=== PATIENT | female | born 1995 | race Caucasian/White ===

== ENCOUNTER 2017-12-09 23:17 | Emergency (ER) | payer OTHER ==
[2017-12-09] MEDS ORDERED: Acetaminophen 500 MG TAB ONE (23:59)
[2017-12-10 00:18] LABS: Bilirubin Negative (Negative); Blood, Urine Negative (Negative); Clarity CLEAR (Clear); Glucose, Urine (Dipstick) Negative (Negative); Leukocyte Small (Negative); Nitrite Negative (Negative); Protein, Urine (Dipstick) Negative (Neg-Trace); Specific Gravity, Urine 1.029 (1.002-1.036); Urobilinogen 0.2 mg/dL (0.2-1.0)
[2017-12-10 00:21] LABS: Bacteria/HPF Rare-Few HPF (None Seen); Hyaline Casts/LPF 0-3 HYALINE CAST LPF (0-3 Hyaline); Pathc Cast-AUWi Flag 0.58 (0-2.49); Squamous Epithelial 0-3 HPF (0-3)
[2017-12-10 00:27] LABS: RBC/HPF None Seen HPF (0-3)
== END 2017-12-10 01:10 | disposition home or self-care (01) ==
LOC: ERS 23:17
DX: O9A.211 Injury, poisoning and certain other consequences of external causes complicating pregnancy, first trimester (principal); M54.5 Low back pain; V43.52XA Car driver injured in collision with other type car in traffic accident, initial encounter; Z3A.10 10 weeks gestation of pregnancy
CPT/HCPCS: 81003; 81015; 99283

== ENCOUNTER 2018-06-24 03:48 | Inpatient (IN) | payer OTHER ==
[2018-06-24 04:18] VITALS: BMI 31.9
[2018-06-24] MEDS ORDERED: Lidocaine 1% (PF) 30 ML VIAL SC PRN (04:29)
[2018-06-24] MEDS ORDERED: Acetaminophen 500 MG TAB PO PRN (04:29)
[2018-06-24] MEDS ORDERED: NS / Oxytocin 40 units/1000ml 1,000 ML IV PRN (04:29)
[2018-06-24] MEDS ORDERED: Docusate 100 MG CAP PO PRN (04:29)
[2018-06-24] MEDS ORDERED: Butorphanol Tartrate 1 MG/ML VIAL SLOW IVP PRN (04:29)
[2018-06-24] MEDS ORDERED: Ibuprofen 800 MG TAB PO PRN (04:29)
[2018-06-24] MEDS ORDERED: Promethazine HCl 25 MG/ML VIAL IM PRN ×2 (04:29→06:50)
[2018-06-24] MEDS ORDERED: Ondansetron PF 4 MG/2 ML Vial IVP PRN ×2 (04:29→06:50)
--- NOTE | 2018-06-24 04:41 | PDOC.EVN ---
Event Note - Event Note Event Note: 06/24/2018 at 4:35 AM 23 year old at 38.5 wks with NADEGE of 07/03/2018 presents with SROM since 3: 10 this AM. Patient reports clear fluid. She endorses contractions q1-3 minutes. Endorses good movement. Denies vaginal bleeding. Patient reports no complications in this . We are in process of trying to obtain GBS status. Surgical history includes wisdom teeth removal. BP 138/94 Pulse 106 PROM - At 3:10 AM on 06/24 - Admit to L&D for expectant management - Epidural for pain control - Category I strip - /-2 at 4:30 TIUP - See plan as above Dispo: Admit to L&D for expectant management Sabrina Valadez, DO PGY-2
[2018-06-24] MEDS: Lactated Ringer's 1,000 ML IV SCH ×3 (05:00→09:30)
[2018-06-24] MEDS ORDERED: Fentanyl 4 mcg/Bup 0.1% Cadd 100 ML ONE ×2 (05:13→13:33)
[2018-06-24] MEDS ORDERED: Lidocaine 1.5%/Epinephrine 1:200,000 5 ML AMPUL IJ ONE ×2 (05:15→10:25)
[2018-06-24 05:18] LABS: Hemoglobin 11.8 g/dL (12.0-16.0); Mean Corpuscular HGB CONC 33.4 g/dL (32.0-36.0); Mean Corpuscular Hemoglobin 27.8 pg (27.0-31.0); Mean Corpuscular Volume 83.4 fL (78.0-98.0); Mean Platelet Volume 7.6 fL (7.4-10.4); Platelet Count 396 thou/uL (130-400); RBC Distribution Width 12.9 % (11.5-14.5); Red Blood Cell (RBC) Count 4.24 mill/uL (4.20-5.40); White Blood Cell (WBC) Count 10.8 thou/uL (4.8-10.8)
[2018-06-24 05:56] LABS: Syphilis Antibody Nonreactive (Nonreactive); Syphilis Antibody Index 0.03 S/CO (<1.00 Non-Reactive)
[2018-06-24 05:57] LABS: HBSAg Index 0.21 S/CO (0-0.99); Hep B Surf Ag Non-Reactive S/CO (NonReactive)
--- NOTE | 2018-06-24 06:32 | PDOC.EVN ---
Event Note - Event Note Event Note: OBGYN Faculty: Patient of Jane steele Called into LDR 9 for decels..I arrived within 2 minutes of call. I arrived to find patient on all fours in knee vhest, FHR in 80s...FSE placed per Dr Valadez (resident ship's electronic warfare officer). No evidence cord prolapse. JUDE was placed at 0608 prior to fdecels but BP did not drop. Terb X1 SQ administered at 0622 (about 1 minute after I arrived)...FHTs up to 110s to low 120s. IUPC to be placed (now in process) by Dr Valadez for better uterine pressure readings. IVF resus in use. Exam: /0/cephalic We will notify Domingo once eval complete. DX: FHR decels to 80 for about 4 minutes, recovery in process s/p terb; active phase of labor
[2018-06-24] MEDS ORDERED: Eucerin (Mineral Oil/Petrolatum,White) 30 gm Jar TOP PRN (06:50)
[2018-06-24] MEDS ORDERED: Lactated Ringer's 500 ML IV PRN (06:50)
[2018-06-24] MEDS ORDERED: Acetaminophen 325 MG TAB PO PRN (06:50)
[2018-06-24] MEDS ORDERED: ePHEDrine/0.9% NaCl/PF SYRINGE 50 mg/10 ml SLOW IVP PRN (06:50)
[2018-06-24] MEDS ORDERED: Naloxone HCl 0.4 mg/ml Vial IVP PRN ×2 (06:50)
[2018-06-24] MEDS ORDERED: diphenhydrAMINE 50 MG/ML VIAL IVP PRN (06:50)
[2018-06-24] MEDS ORDERED: Communication Order-Pharmacy FS SCH (07:00)
[2018-06-24] MEDS ORDERED: Fentanyl 4 mcg/Bupivacaine 0.1% Cassette 100 ML EPIDURAL SCH (07:00)
[2018-06-24 08:32] LABS: HIV (1/2) Antibody/Antigen Non-Reactive (NonReactive); HIV 1/2 INDEX 0.15 S/CO (<1.00)
[2018-06-24] MEDS ORDERED: NS w/ Oxytocin 10 units 500 ML ONE (10:13)
--- NOTE | 2018-06-24 10:22 | PDOC.LDPN ---
Labor & Delivery Progress Note - Subjective Subjective: comfortable (with regional pain management) - Objective Vital signs reviewed and normal: yes General: NAD, resting Uterine fundus: non tender Dilation: 7 Effacement: 90% Station: 0 FHT: category 1 Burien contractions every: q5min - Assessment (1) 39 weeks gestation of Code(s): Z3A.39 - 39 WEEKS GESTATION OF Current Visit: Yes Status : Acute (2) Primigravida Code(s): Z34.00 - ENCNTR FOR SUPRVSN OF NORMAL FIRST , UNSP TRIMESTER Current Visit: Yes Status: Acute (3) heart rate decelerations affecting management of mother Code(s): O36.8390 - MATERN CARE FOR ABNLT FETL HRT RATE OR RHYM, UNSP TRI, UNSP Current Visit: Yes Status: Acute Plan: pitocin for augmentation -: anticipate . Observer for further heart rate decelerations. Discussed possibility of delivery should infant have another prolonged deceleration.
[2018-06-24] MEDS ORDERED: NS w/ Oxytocin 10 units 500 ML IV SCH (10:30)
[2018-06-24] MEDS ORDERED: Terbutaline Sulfate 1 MG/ML VIAL ONE (11:11)
[2018-06-24] MEDS ORDERED: Sodium Chloride 0.9% (PF) 10 ML VIAL ONE (11:11)
[2018-06-24] MEDS ORDERED: Bupivacaine 0.25% HCL 30 ML VIAL ONE (11:11)
[2018-06-24] MEDS ORDERED: Bupivacaine HCl 0.25%/Epi 0.0005/PF 10 ML VIAL FS ONE (11:11)
--- NOTE | 2018-06-24 18:35 | PDOC.OPDEL ---
OB Operative/Delivery Note Delivery Dr/Surgeon: David Assist: Light Pre-Delivery Diagnosis: active labor, ruptured membrane Procedure/Post Delivery Dx: operative vaginal delivery (VAVD by Dr. Hernandez.) Weeks gestation: 38 (and 5 ) Anesthesia: epidural - Findings A - 1 min: 8 - 5 min: 9 - Additional Findings/Plan Placenta delivered: spontaneous Repaired Obstetrical Laceration: 2nd degree Estimated blood loss: 400mL Compilations/Other Findings: Prolonged second stage and maternal exhaustion. matt team - at [facility]. Post delivery plan: routine recovery
[2018-06-25] MEDS ORDERED: Benzocaine/Menthol 20-0.5% 60 ML CAN TOP PRN (00:04)
[2018-06-25] MEDS ORDERED: Bisacodyl 10 MG SUPP PR PRN (00:04)
[2018-06-25] MEDS ORDERED: diphenhydrAMINE 25 MG CAP PO PRN (00:04)
[2018-06-25] MEDS ORDERED: NS / Oxytocin 40 units/1000ml 1,000 ML IV SCH (00:04)
[2018-06-25] MEDS ORDERED: HYDROcodone/Acetaminophen 5/325 mg Tablet PO PRN ×2 (00:04)
[2018-06-25] MEDS ORDERED: Milk Of Magnesia 30 ML UDCUP PO PRN (00:04)
[2018-06-25] MEDS ORDERED: Ondansetron PF 4 MG/2 ML Vial IVP PRN (00:04)
[2018-06-25] MEDS ORDERED: Methylergonovine 0.2 MG/ML VIAL IM PRN (00:04)
[2018-06-25] MEDS ORDERED: Lanolin Ointment 7 GM TUBE TOP PRN (00:04)
[2018-06-25 05:52] LABS: Mean Corpuscular HGB CONC 32.8 g/dL (32.0-36.0); Mean Corpuscular Hemoglobin 27.6 pg (27.0-31.0); Mean Corpuscular Volume 84.2 fL (78.0-98.0); Mean Platelet Volume 7.4 fL (7.4-10.4); Platelet Count 260 thou/uL (130-400); RBC Distribution Width 12.8 % (11.5-14.5); Red Blood Cell (RBC) Count 3.26 mill/uL (4.20-5.40); White Blood Cell (WBC) Count 12.2 thou/uL (4.8-10.8)
[2018-06-25] MEDS: Ibuprofen 800 MG TAB PO SCH ×3 (06:02→21:24)
[2018-06-25] MEDS ORDERED: Adacel (T-DAP) 0.5 ML SYRINGE IM ONE (09:00)
[2018-06-25] MEDS: Docusate Calcium (SURFAK) 240 MG CAP PO SCH ×2 (09:29→21:24)
[2018-06-25] MEDS: Prenatal Vitamin 1 TAB PO SCH (09:29)
[2018-06-25] MEDS: Ferrous Sulfate 325 MG TAB PO SCH ×2 (09:31→18:13)
--- NOTE | 2018-06-25 19:21 | PDOC.PP ---
Post Progress Note Post Day #: 1. Subjective: Patient is doine well. had some difficultly urinating last night and had to have another catheter. she is able to pee again toda, but it soriano really bad again. She is just using the spray which is helping. PO intake tolerated: yes Flatus: yes Ambulation: yes Vital Signs (12 hours) Temp Pulse Resp BP 06/25/18 17:35 98.1 F 75 18 144/67 H 06/25/18 11:05 98.2 F 107 H 17 134/77 Weight Weight 186 lb - Physical Examination General: NAD Cardiovascular: no m/r/g, RRR Respiratory: clear to auscultation bilaterally, non-labored breathing Abdominal: + bowel sounds, lochia (minimal) Fundus firm & at: U-1 Extremities: negative homans (B) Skin: no rash Perineum: edema, laceration intact. Neurological: no gross focal deficits Psychiatric: A&Ox3, normal affect Result Diagrams: 06/25/18 05:32 Additional Labs: Post Labs Blood Type O POSITIVE 06/24/18 05:00 Hep Bs Antigen Non-Reactive S/CO (NonReactive) 06/24/18 05:00 (1) 39 weeks gestation of Code(s): Z3A.39 - 39 WEEKS GESTATION OF Status: Acute (2) Primigravida Code(s): Z34.00 - ENCNTR FOR SUPRVSN OF NORMAL FIRST , UNSP TRIMESTER Status: Acute (3) heart rate decelerations affecting management of mother Code(s): O36.8390 - MATERN CARE FOR ABNLT FETL HRT RATE OR RHYM, UNSP TRI, UNSP Status: Acute (4) Vacuum extraction, delivered, current hospitalization Code(s): O66.5 - ATTEMPTED APPLICATION OF VACUUM EXTRACTOR AND FORCEPS Status : Acute (5) Anemia Code(s): D64.9 - ANEMIA, UNSPECIFIED Status: Acute (6) Second degree laceration of perineum, delivered, current hospitalization Code(s): O70.1 - SECOND DEGREE PERINEAL LACERATION DURING DELIVERY Status: Acute - Assessment/Plan A: G1 now P1 s/p VAVD for prolonged second stage and maternal exhaustion. NML PPD #1 exam. P: Discharge home tomorrow. restart PNV and OTC iron at home for anemia. 6 week follow up at [facility].
[2018-06-26] MEDS: Ibuprofen 800 MG TAB PO SCH (05:55)
--- NOTE | 2018-06-26 08:12 | DIS ---
DATE OF ADMISSION: 06/24/2018 DATE OF DISCHARGE: 06/26/2018 ADMITTING DIAGNOSES: 1. Intrauterine at 38 and 5. 2. Labor. DISCHARGE DIAGNOSES: 1. Intrauterine at 38 and 5. 2. Labor. PROCEDURE: Vacuum-assisted vaginal delivery. HOSPITAL COURSE: The patient is a 23-year-old female, who presented to Labor and Delivery in labor at 38 weeks and 5 days and was admitted for expectant management. Her labor course was complicated by requiring operative delivery and delivered by vacuum-assisted vaginal delivery. For complete details, please refer to the delivery note. Her course has been uncomplicated. The patient is now day 2. She is tolerating p.o., voiding on her own, having decreased lochia, and good pain control. PHYSICAL EXAMINATION: VITAL SIGNS: Her most recent vital signs; blood pressure 119/69, temperature 98.1, pulse of 83, respiratory rate of 20. GENERAL: She appears to be in no acute distress. She is alert, oriented, cooperative, and pleasant to interact with. HEENT: Head is normocephalic and atraumatic. LUNGS: Clear to auscultation bilaterally. ABDOMEN: Fundus is firm at the umbilicus. EXTREMITIES: Nontender and nonedematous. Postdelivery hemoglobin 9.0, hematocrit 27.4, and platelets of 260,000. The patient is being discharged to home with ibuprofen and tramadol. She has instructions to follow up with her primary OB, Ms. Inessa Lane in 6 weeks or sooner if she experiences increasing pain or bleeding or fever. The patient is being discharged to home. Job ID: [id number]
[2018-06-26 09:56] VITALS: BP 119/77; TEMP 98
[2018-06-26] MEDS: Ferrous Sulfate 325 MG TAB PO SCH (10:23)
[2018-06-26] MEDS: Prenatal Vitamin 1 TAB PO SCH (10:23)
[2018-06-26] MEDS: Docusate Calcium (SURFAK) 240 MG CAP PO SCH (10:24)
== END 2018-06-26 12:29 | disposition home or self-care (01) | DRG 807 ==
LOC: L&D/OP 03:48 → L&D 04:32 → 3SW 21:15
PROVIDERS: ADMIT Obstetrics & Gynecology; ATTEND Obstetrics & Gynecology
PROC: 10D07Z6 Extraction of Products of Conception, Vacuum, Via Natural or Artificial Opening (ICD-10-PCS; principal; 2018-06-24)
PROC: 0KQM0ZZ Repair Perineum Muscle, Open Approach (ICD-10-PCS; 2018-06-24)
PROC: 10H07YZ Insertion of Other Device into Products of Conception, Via Natural or Artificial Opening (ICD-10-PCS; 2018-06-24)
DX: O63.1 Prolonged second stage (of labor) (principal); Z37.0 Single live birth; Z3A.38 38 weeks gestation of pregnancy; O70.1 Second degree perineal laceration during delivery; O75.81 Maternal exhaustion complicating labor and delivery; O76 Abnormality in fetal heart rate and rhythm complicating labor and delivery; O66.5 Attempted application of vacuum extractor and forceps; O90.81 Anemia of the puerperium; D64.9 Anemia, unspecified
CPT/HCPCS: 36415; 51702; 85027; 86780; 86850; 86900; 86901; 87340; 87389; 99285; J2001; J2405; J3105; J3490; S0020

== ENCOUNTER 2019-11-10 15:56 | Emergency (ER) | payer OTHER ==
[2019-11-10 16:35] LABS: #Basophils 0.1 thou/uL (0.0-0.2); #Eosinphils 0.1 thou/uL (0.0-0.7); #Lymphocytes 2.2 thou/uL (1.20-3.40); #Monocytes 0.5 thou/uL (0.11-0.59); #Neutrophils 6.7 thou/uL (1.40-6.50); %Eosinophils 0.8 % (0.0-10.0); %Monocytes 5.5 % (0.0-10.0); %Neutrophils 69.8 % (42.0-75.0); Mean Corpuscular HGB CONC 32.9 g/dL (32.0-36.0); Mean Corpuscular Hemoglobin 27.8 pg (27.0-31.0); Mean Corpuscular Volume 84.5 fL (78.0-98.0); Mean Platelet Volume 7.7 fL (7.4-10.4); Platelet Count 283 thou/uL (130-400); RBC Distribution Width 12.3 % (11.5-14.5); White Blood Cell (WBC) Count 9.6 thou/uL (4.8-10.8)
--- NOTE | 2019-11-10 17:20 | ULT ---
Obstetric sonogram first trimester HISTORY: Early . Pelvic pain. FINDINGS: Urinary bladder is decompressed. Gestational sac within the endometrial cavity contains a yolk sac remnant and pole. Measurement s correlate with 11 weeks 5 days gestational age giving an estimated date of delivery of 05/26/2020. Heart motion at 160 beats from minute. Anterior to the gestational sac is an irregular shaped heterogeneous echogenic collection measuring 5 .2 cm length by 2.3 cm depth. Minimal free fluid at the right adnexa. Neither ovary well visualized. IMPRESSION : Single early intrauterine gestation. Estimated gestational age 11 weeks 5 days. Anterior subchorionic hematoma. 5.2 cm x 2.3 cm.
[2019-11-10 17:56] LABS: Bacteria/HPF None Seen HPF (None Seen); Bilirubin Negative (Negative); Blood, Urine 1+ (Negative); Clarity Clear (Clear); Glucose, Urine (Dipstick) Normal (Negative); Leukocyte Negative Leu/uL (Negative); Nitrite Negative (Negative); Protein, Urine (Dipstick) Negative (Neg-Trace); Squamous Epithelial 0-3 HPF (0-3); Urobilinogen Normal mg/dL (Less than 2); WBC/HPF 0-3 HPF (0-3)
[2019-11-11 23:11] LABS: Chlamydia by PCR Not Detected (NotDetected); GC by PCR Not Detected (NotDetected)
== END 2019-11-10 18:18 | disposition home or self-care (01) ==
LOC: ERS 15:56
DX: O20.8 Other hemorrhage in early pregnancy (principal); Z3A.11 11 weeks gestation of pregnancy
CPT/HCPCS: 36415; 76856; 81003; 81015; 85025; 86900; 86901; 87480; 87491; 87510; 87591; 87660; 93976

== ENCOUNTER 2020-04-24 08:12 | Outpatient (CLI) | payer OTHER ==
--- NOTE | 2020-04-27 11:59 | EKG ---
Test Reason : POUNDING PULSE Blood Pressure : / mmHG Vent. Rate : 083 BPM Atrial Rate : 083 BPM P-R Int : 136 ms QRS Dur : 076 ms QT Int : 348 ms P-R-T Axes : 038 066 012 degrees QTc Int : 408 ms Normal sinus rhythm Normal ECG No previous ECGs available Confirmed by REANNA CARTAGENA (2) on 04/27/2020 11:59:30 AM Referred By: VAZQUEZ ABERNATHY Confirmed By:REANNA CARTAGENA
== END 2020-04-24 08:13 | disposition home or self-care (01) ==
LOC: EKG 08:12 → ULT 08:13
PROVIDERS: ATTEND Advanced Practice Midwife
DX: R00.8 Other abnormalities of heart beat (principal); I08.1 Rheumatic disorders of both mitral and tricuspid valves
CPT/HCPCS: 93005; 93010; 93306

== ENCOUNTER 2020-05-18 19:10 | Inpatient (IN) | payer OTHER ==
[~2020-05-18 19:10] MED LIST: Bupivacaine HCl 0.5%/Epinephrine 1:200,000/PF 30 ml Vial ONE; Lidocaine 2% MPF 10 ML AMP (For Epidural Use) ONE
[2020-05-18 19:37] VITALS: BMI 32.5
[2020-05-18 20:39] LABS: Hemoglobin 10.3 g/dL (12.0-16.0); Mean Corpuscular HGB CONC 32.1 g/dL (32.0-36.0); Mean Corpuscular Hemoglobin 23.4 pg (27.0-31.0); Mean Platelet Volume 8.4 fL (7.4-10.4); Platelet Count 249 thou/uL (130-400); RBC Distribution Width 14.2 % (11.5-14.5); White Blood Cell (WBC) Count 10.3 thou/uL (4.8-10.8)
[2020-05-18] MEDS ORDERED: Butorphanol Tartrate 1 MG/ML VIAL SLOW IVP PRN (20:53)
[2020-05-18] MEDS ORDERED: Methylergonovine 0.2 MG/ML VIAL IM PRN (20:53)
[2020-05-18] MEDS ORDERED: hydrALAZINE 20 MG/ML VIAL SLOW IVP PRN (20:53)
[2020-05-18] MEDS ORDERED: Promethazine HCl 25 MG/ML VIAL IM PRN ×2 (20:53→21:32)
[2020-05-18] MEDS ORDERED: HYDROcodone/Acetaminophen 5/325 mg Tablet PO PRN ×2 (20:53)
[2020-05-18] MEDS ORDERED: Lidocaine 1% (PF) 30 ML VIAL SC PRN (20:53)
[2020-05-18] MEDS ORDERED: Ondansetron PF 4 MG/2 ML Vial IVP PRN ×2 (20:53→21:32)
[2020-05-18] MEDS ORDERED: Misoprostol 200 MCG TAB PR PRN (20:53)
[2020-05-18] MEDS ORDERED: NS / Oxytocin 40 units/1000ml 1,000 ML IV PRN (20:53)
[2020-05-18] MEDS ORDERED: Ibuprofen 800 MG TAB PO PRN (20:53)
--- NOTE | 2020-05-18 20:59 | PDOC.LDHP ---
Labor and Delivery H&P Chief complaint: contractions HPI: Roverto arrived to hospital complaining of contractions Current gestational age (weeks): 38 Due date: 05/29/20 Grav: 2 Para: 1 OB History Details: VAVD with Dr. Hernandez. OP presentation. Current complications: none Abnormal US findings: No Current medications: pre-peter vitamins Previous surgical history: other (mouth surgery) Allergies/Adverse Reactions: Allergies Allergy/AdvReac Type Severity Reaction Status Date / Time No Known Allergies Allergy Verified 05/18/20 19:35 Social history: none - Physical Exam Vital signs reviewed and normal: yes General: breathing through contractions Lungs: nonlabored breathing Abdomen: gravid Extremeties: no edema FHT: category 1 - Vaginal Exam cm dilated: 4 Effacement: 90% Station: -1 - OB Labs Blood type: O RH: positive Antibody Screen: negative HIV: negative RPR: negative HEPSAg: negative 1 hour GCT: negative GBS: negative Urine drug screen: negative Rubella: immune - Assessment L&D Assessment: term patient in labor - Plan Plan: admit to L&D, informed consent obtained, anesthesia consult for pain management -: routine care anticipate Pitocin for augmentation if indicated.
[2020-05-18] MEDS ORDERED: DISCONTINUE ALL PREVIOUS NARCOTICS FS SCH (21:00)
[2020-05-18] MEDS ORDERED: Lactated Ringer's 1,000 ML IV SCH (21:00)
[2020-05-18] MEDS ORDERED: Bupivacaine 0.5% 20 ML, fentaNYL Citrate/PF 400 MCG in Sodium Chloride 0.9% 72 ML EPIDURAL SCH (21:00)
[2020-05-18] MEDS ORDERED: NS w/ Oxytocin 10 units 500 ML IV SCH (21:00)
[2020-05-18 21:18] LABS: Syphilis Antibody Nonreactive (Nonreactive); Syphilis Antibody Index 0.03 S/CO (<1.00 Non-Reactive)
[2020-05-18] MEDS ORDERED: Acetaminophen 325 MG TAB PO PRN (21:32)
[2020-05-18] MEDS ORDERED: Lactated Ringer's 500 ML IV PRN (21:32)
[2020-05-18] MEDS ORDERED: Naloxone HCl 0.4 mg/ml Vial IVP PRN ×2 (21:32)
[2020-05-18] MEDS ORDERED: diphenhydrAMINE 50 MG/ML VIAL IVP PRN (21:32)
[2020-05-18] MEDS ORDERED: ePHEDrine 50 MG/ML VIAL SLOW IVP PRN (21:32)
[2020-05-18] MEDS ORDERED: Communication Order-Pharmacy FS SCH (21:45)
[2020-05-18] MEDS ORDERED: Fentanyl 4 mcg/Bupivacaine 0.1% Cassette 100 ML EPIDURAL SCH (21:45)
[2020-05-18 22:06] LABS: HBSAg Index 0.17 S/CO (0-0.99); Hep B Surf Ag Non-Reactive S/CO (NonReactive)
[2020-05-19 04:16] LABS: Actual Bicarbonate (HCO3a) 22.9 mEq/L (22-28); Base Excess (BEa) -4.3 mEq/L (-2.0 to +3.0)
--- NOTE | 2020-05-19 04:22 | PDOC.OPDEL ---
OB Operative/Delivery Note Delivery Dr/Surgeon: Light Pre-Delivery Diagnosis: active labor Procedure/Post Delivery Dx: spontaneous vaginal delivery Anesthesia: epidural - Findings A Sex: male - 1 min: 6 - 5 min: 9 - Additional Findings/Plan Estimated blood loss: 150 Compilations/Other Findings: Tight nuchal, cut and clamped on perineum. Post delivery plan: routine recovery
[2020-05-19] MEDS ORDERED: NS / Oxytocin 40 units/1000ml 1,000 ML IV SCH (04:57)
[2020-05-19] MEDS ORDERED: Bisacodyl 10 MG SUPP PR PRN (04:57)
[2020-05-19] MEDS ORDERED: hydrALAZINE 20 MG/ML VIAL SLOW IVP PRN (04:57)
[2020-05-19] MEDS ORDERED: Milk Of Magnesia 30 ML UDCUP PO PRN (04:57)
[2020-05-19] MEDS ORDERED: HYDROcodone/Acetaminophen 5/325 mg Tablet PO PRN ×2 (04:57)
[2020-05-19] MEDS ORDERED: Misoprostol 200 MCG TAB VAG PRN (04:57)
[2020-05-19] MEDS ORDERED: Benzocaine-Menthol 82.5 ML CAN TOP PRN (04:57)
[2020-05-19 05:34] LABS: SARS-CoV-2 MS2 Positive; SARS-CoV-2 N Gene Negative; SARS-CoV-2 S Gene Negative; SARS-CoV-2 by NAA Not Detected (NotDetected); SARS-CoV-2 orf1ab Negative
[2020-05-19] MEDS ORDERED: Adacel (T-DAP) 0.5 ML SYRINGE IM ONE (09:00)
[2020-05-19] MEDS: Ibuprofen 800 MG TAB PO SCH ×2 (10:28→16:44)
[2020-05-19] MEDS: Prenatal Vitamin 1 TAB PO SCH (10:28)
[2020-05-19] MEDS: Docusate Calcium (SURFAK) 240 MG CAP PO SCH ×2 (10:28→22:07)
[2020-05-19] MEDS: Ferrous Sulfate 325 MG TAB PO SCH ×2 (10:29→20:44)
[2020-05-20] MEDS: Ibuprofen 800 MG TAB PO SCH ×3 (00:52→09:24)
[2020-05-20 09:23] VITALS: BP 118/79; TEMP 98
[2020-05-20] MEDS: Ferrous Sulfate 325 MG TAB PO SCH (09:24)
[2020-05-20] MEDS: Prenatal Vitamin 1 TAB PO SCH (09:24)
[2020-05-20] MEDS: Docusate Calcium (SURFAK) 240 MG CAP PO SCH (09:24)
== END 2020-05-20 16:40 | disposition home or self-care (01) | DRG 807 ==
LOC: L&D/OP 19:10 → L&D 22:19 → 3SW 05-19 07:49
PROVIDERS: ADMIT Obstetrics & Gynecology; ATTEND Obstetrics & Gynecology
PROC: 10E0XZZ Delivery of Products of Conception, External Approach (ICD-10-PCS; principal; 2020-05-19)
PROC: 0HQ9XZZ Repair Perineum Skin, External Approach (ICD-10-PCS; 2020-05-19)
DX: O69.1XX0 Labor and delivery complicated by cord around neck, with compression, not applicable or unspecified (principal); Z37.0 Single live birth; Z20.828 Contact with and (suspected) exposure to other viral communicable diseases; O70.0 First degree perineal laceration during delivery; Z3A.38 38 weeks gestation of pregnancy
CPT/HCPCS: 36415; 51702; 82805; 85027; 86780; 86850; 86900; 86901; 87340; 87635; 99285; J2001; J3010; J3490; U0003

== ENCOUNTER 2020-08-01 10:20 | Outpatient (CLI) | payer OTHER | END 2020-08-01 10:21 | disposition home or self-care (01) | LOC: BICRAD 10:20 | PROVIDERS: ATTEND Advanced Practice Midwife | DX: M53.3 Sacrococcygeal disorders, not elsewhere classified (principal) | CPT/HCPCS: 72220 ==

== ENCOUNTER 2020-08-08 06:48 | Emergency (ER) | payer OTHER ==
[2020-08-08] MEDS ORDERED: Morphine 4 MG/ML VIAL ONE (07:53)
[2020-08-08 07:54] LABS: #Basophils 0.1 thou/uL (0.0-0.2); #Eosinphils 0.1 thou/uL (0.0-0.7); #Monocytes 0.4 thou/uL (0.11-0.59); #Neutrophils 3.2 thou/uL (1.40-6.50); %Basophils 1.2 % (0.0-1.0); %Eosinophils 1.9 % (0.0-10.0); %Lymphocytes 35.4 % (21.0-51.0); %Monocytes 6.3 % (0.0-10.0); %Neutrophils 55.2 % (42.0-75.0); Hemoglobin 11.9 g/dL (12.0-16.0); Mean Corpuscular Hemoglobin 24.5 pg (27.0-31.0); Mean Corpuscular Volume 76.7 fL (78.0-98.0); Mean Platelet Volume 7.9 fL (7.4-10.4); Platelet Count 304 thou/uL (130-400); RBC Distribution Width 15.3 % (11.5-14.5); Red Blood Cell (RBC) Count 4.86 mill/uL (4.20-5.40); White Blood Cell (WBC) Count 5.7 thou/uL (4.8-10.8)
[2020-08-08] MEDS ORDERED: Ondansetron PF 4 MG/2 ML Vial ONE (07:57)
[2020-08-08 08:00] LABS: Bacteria/HPF None Seen HPF (None Seen); Bilirubin Negative (Negative); Blood, Urine 2+ (Negative); Clarity Clear (Clear); Glucose, Urine (Dipstick) Normal (Negative); Ketone, Urine Negative (Negative); Leukocyte Negative Leu/uL (Negative); Nitrite Negative (Negative); Protein, Urine (Dipstick) Negative (Neg-Trace); Specific Gravity, Urine 1.026 (1.002-1.036); Squamous Epithelial None Seen HPF (0-3); Urobilinogen Normal mg/dL (Less than 2); WBC/HPF 0-3 HPF (0-3); pH, Urine 5.5 (5.0-9.0)
[2020-08-08 08:02] LABS: Pregnancy Test - Urine (BHCG) Negative (Negative); Pregu Control Background? CLEAR/WHITE (CLR/WHITE); Pregu Control Bar Appear? YES (CONTROL BAR); Specific Gravity 1.026 (1.002-1.036)
[2020-08-08 08:14] LABS: ALT (SGPT) 13 U/L (8-55); AST (SGOT) 19 U/L (5-34); Albumin 4.2 g/dL (3.5-5.0); Alkaline Phosphatase 73 U/L (40-110); Anion Gap 13 mmol/L (10-20); BUN (Urea Nitrogen) 19 mg/dL (7.0-18.7); Bilirubin, Total 0.2 mg/dL (0.2-1.2); Calc. Creatinine Clearance 0 mL/min (70-130); Calcium 8.8 mg/dL (7.8-10.44); Carbon Dioxide 23 mmol/L (22-29); Chloride 108 mmol/L (98-107); Globulin 3.3 g/dL (2.4-3.5); Glucose 92 mg/dL (70-105); Potassium 4.4 mmol/L (3.5-5.1); Protein, Total 7.5 g/dL (6.0-8.3); Sodium 140 mmol/L (136-145)
--- NOTE | 2020-08-08 09:21 | CT ---
ABDOMEN CT WITH CONTRAST PELVIC CT WITH CONTRAST: Date: 08/08/2020 HISTORY: Right lower quadrant pain. Heavy menstrual bleeding. FINDINGS: ABDOMEN CT: Clear lung bases. Normal heart size. Normal caliber aorta. Patent portal vein. Unremarkable gallbladder. Appropriate enhancement of solid organs. Appropriate enhancement of right kidney without evidence of obstructive uropathy. Left kidney is not appreciated. Correlate for postsurgical change versus congenital absence of the le ft kidney. No gastrohepatic, retrocrural, or periportal lymphadenopathy. Scattered mildly enlarged mesenteric lymph nodes. Correlate for mesenteric lymphadenitis. Representat darlin enlarged lymph node measures 1.2 x 0.7 cm. No mesenteric free air or free fluid. Limited evaluation of the alimentary canal by lack of oral contrast. No evidence of a bowel obstruction. Diverticulosis, without evidence of diverticulitis. Normal caliber appendix. PELVIC CT: Intrauterine device is identified. No abnormality in adnexal structures. No pelvic mass, lymphadenopathy, free air, or free fluid. Presacral fat is preserved. Decompressed urinary bladder. No lytic or blastic lesions in the osseous structures. IMPRESSION: Normal caliber appendix. POS: [facility]
[2020-08-08] MEDS ORDERED: Iopamidol-370 76% 500 ML 1 ML ONE (10:17)
--- NOTE | 2020-08-08 10:19 | ULT ---
TRANSABDOMINAL AND TRANSVAGINAL PELVIC ULTRASOUND WITH HUANG SCALE AND COLOR FLOW AND SPECTRAL DOPPLER IMAGING: Date: 08/08/2020 HISTORY: Right lower quadrant pain and heavy vaginal bleeding. Recently placed IUD. FINDINGS: The uterus measures 8.1 x 4.3 x 6.3 cm without focal mass. IUD is visualized within the endometrial c anal. Endometrium measures 5.0 mm in thickness. The right ovary measures 2.5 x 1.3 x 1.8 cm and demonstrates flow. No adnexal mass is seen on either side. No free fluid is identified. The left ovary is not visualized and is obscured by bowel. IMPRESSION: 1. IUD in place. 2. Nonvisualization of the left ovary. POS: [facility]
== END 2020-08-08 12:22 | disposition home or self-care (01) ==
LOC: ERS 06:48
DX: I88.0 Nonspecific mesenteric lymphadenitis (principal)
CPT/HCPCS: 74177; 76856; 80053; 81003; 81015; 81025; 85025; 96374; 96375; J2270; J2405; Q9967